=== PATIENT | male | born 1990 | race African-American/Black ===

== ENCOUNTER 2017-09-18 15:23 | Emergency (ER) | payer OTHER ==
[~2017-09-18] VITALS: Ht 177.8 cm; Wt 79.4 kg
[~2017-09-18 15:23] MED LIST: BACTRIM DS TAB1 EACH PO
[2017-09-18] MEDS ORDERED: BACTRIM DS TAB1 EACH PO (16:28)
[2017-09-18] MEDS ORDERED: MOBIC15 MG PO (16:46)
[2017-09-18 16:59] VITALS: BP 113/90
== END 2017-09-18 17:00 | disposition home or self-care (01) ==
LOC: ER 15:23
DX: L02.612 Cutaneous abscess of left foot (principal); Z23 Encounter for immunization

== ENCOUNTER 2018-01-18 18:48 | Emergency (ER) | payer OTHER ==
[~2018-01-18] VITALS: Ht 180.3 cm; Wt 80.7 kg
[~2018-01-18 18:48] MED LIST changes: +MOBIC15 MG PO
[2018-01-18 19:12] LABS: ABSOLUTE NEUTROPHILS 9.7 thou/uL (1.4-8.2); BASOPHILS 0.5 % (0.0-2.0); EOSINOPHILS 2.9 % (0.0-3.0); HEMATOCRIT 39.8 % (42.0-52.0); HEMOGLOBIN 13.6 gm/dL (14.0-18.0); LYMPHOCYTES 13.8 % (24.0-44.0); MCH 30.5 pg (26.0-34.0); MCHC 34.2 g/dL (28.0-37.0); MCV 89.2 fL (80.0-100.0); MONOCYTES 5.7 % (1.0-8.0); PLATELET COUNT 255 thou/uL (150-400); POLYS 77.1 % (36.0-66.0); RBC 4.46 mil/uL (4.50-6.00); RDW 13.9 % (10.5-14.5); WBC 12.6 thou/uL (4.0-11.0)
[2018-01-18 19:22] LABS: CALCIUM 9.6 mg/dL (8.5-10.1); CREATININE 0.8 mg/dL (0.7-1.3); POTASSIUM 3.6 mmol/L (3.5-5.1)
[2018-01-18 19:29] LABS: ALBUMIN 4.5 g/dL (3.4-5.0); TOTAL BILIRUBIN 2.3 mg/dL (<0.1-1.0); TOTAL PROTEIN 8.1 g/dL (6.4-8.2)
[2018-01-18 20:17] LABS: URINE BILIRUBIN NEGATIVE (Negative); URINE BLOOD NEGATIVE (Negative); URINE CLARITY CLEAR; URINE COLOR YELLOW; URINE GLUCOSE-RANDOM* NEGATIVE (Negative); URINE KETONES 2+ (Negative); URINE LEUKOCYTES-REFLEX NEGATIVE (Negative); URINE NITRITE-REFLEX NEGATIVE (Negative); URINE PROTEIN (DIPSTICK) TRACE (Negative); URINE SPECIFIC GRAVITY 1.015 (1.005-1.035); URINE UROBILINOGEN 0.2 E.U./dl (0.2-1.0)
[2018-01-18] MEDS ORDERED: PRILOSEC OTC20 MG PO (21:32)
[2018-01-18 21:50] VITALS: BP 130/88
== END 2018-01-18 21:52 | disposition home or self-care (01) ==
LOC: ER 18:48
PROVIDERS: Physician Assistant
DX: R10.13 Epigastric pain (principal); R11.2 Nausea with vomiting, unspecified

== ENCOUNTER 2019-10-22 19:03 | Emergency (ER) | payer OTHER ==
[~2019-10-22] VITALS: Ht 177.8 cm; Wt 79.4 kg
[~2019-10-22 19:03] MED LIST changes: +PRILOSEC OTC20 MG PO
[2019-10-22 21:55] VITALS: BP 119/73
== END 2019-10-22 21:50 | disposition home or self-care (01) ==
LOC: ER 19:03
DX: H61.22 Impacted cerumen, left ear (principal)